=== PATIENT | female | born 1945 | race Caucasian/White ===

== ENCOUNTER 2019-07-07 07:03 | Observation (INO) | payer MEDICARE ==
[~2019-07-07] VITALS: Ht 162.6 cm; Wt 77.3 kg
[2019-07-07] VITALS (7 sets, daily range): BP systolic 131–149; BP diastolic 65–83; Ht 162.6 cm; Wt 77.3 kg
[2019-07-07] MEDS ORDERED: ALBUTEROL SULF8.5 GM INH (07:10)
[2019-07-07] MEDS ORDERED: ADVAIR 250/501 DISK INH (07:10)
[2019-07-07] MEDS ORDERED: ULTRAM50 MG PO (07:11)
[2019-07-07] MEDS ORDERED: VITAMIN C WIT1000 MG PO (07:11)
[2019-07-07] MEDS ORDERED: ASPIRIN81 MG PO (07:11)
[2019-07-07] MEDS ORDERED: MULTI-DAY VITAM1 TAB PO (07:12)
--- NOTE | 2019-07-07 07:59 | NUR ---
REPORT TO SACHIN AT 0755. PATIENT GOING TO ROOM 2104.
[2019-07-07 08:03] LABS: BASOPHILS 0.3 % (0-2); EOSINOPHILS 1.5 % (0-7); HEMATOCRIT 45.8 % (36.0-48.0); HEMOGLOBIN 15.1 g/dL (12-16); IMMATURE GRANULOCYTES 0.2 % (0-5); MCH 31.1 pg (26.0-34.0); MCV 94.4 fL (80.0-100.0); MEAN PLATELET VOLUME 8.7 fL (7.4-10.4); MONOCYTES 6.6 % (2-11); NEUTROPHILS 65.4 % (40-80); PLATELET COUNT 372 10x3/uL (130-400); RBC 4.85 10x6/uL (4.00-5.40); RDW 14.1 % (11.5-14.5); WBC 10.8 10x3/uL (4.8-10.8)
--- NOTE | 2019-07-07 08:06 | NUR ---
PATIENT BLUE FOLDER NOT READY JUST YET. REGISTRATION STILL IN PATIENT'S ROOM. WILL TRANSPORT WHEN ABLE.
[2019-07-07 08:15] LABS: CALC OSMOLALITY 286 mosm/kg (275-300); CALCIUM 8.7 mg/dL (8.5-10.1); CHLORIDE - SERUM 108 mmol/L (98-107); CREATININE - SERUM 0.9 mg/dL (0.6-1.3); GLUCOSE 113 mg/dL (74-106); POTASSIUM - SERUM 4.1 mmol/L (3.5-5.1); SODIUM 143 mmol/L (136-145); UREA NITROGEN 16 mg/dL (7-18); eGFR NON AFRICAN AMERICAN 65 mL/min (90-120)
[2019-07-07 08:17] LABS: INR 1.02 (0.85-1.17); PROTIME 12.9 SECONDS (11.6-15.0)
[2019-07-07 08:18] LABS: APTT 39.7 SECONDS (22.8-39.4)
--- NOTE | 2019-07-07 08:23 | NUR ---
RECIEVED PT FROM ER VIA W/C TO ROOM 2103. PT ALERT AND ORIENTED. RESP EVEN AND UNLABORED. PT REPORTS HAVING HAD PRESSURE IN HER CHEST SINCE LAST EVENING. PT DENIES CHEST PAIN AT THIS TIME, BUT DOES VOICE A "SORE SPOT" AND POINTS TO MIDDLE LEFT OF CHEST. IV TO RIGHT FOREARM, SALINE LOCKED. SITE WITHOUT REDNESS OR EDEMA. ORIENTED PT TO ROOM, CALL LIGHT AND BED CONTROLS. PT DENIES FURTHER QUESTIONS AT THIS TIME. CL WITHIN REACH. ENCOURAGED TO CALL WITH NEEDS. CONTINUE POC
--- NOTE | 2019-07-07 08:26 | NUR ---
0815 PATIENT TRANSPORTED TO ROOM 2104. NO DISTRESS. DEIVERED TO CARLITO STEPHENSON. ANA IN ROOM PERFORMING VITALS. PATIENT TOLERATED WELL.
[2019-07-07 08:32] LABS: ALBUMIN 3.3 g/dL (3.4-5.0); ALKALINE PHOSPHATASE 64 U/L (46-116); ALT (SGPT) 27 U/L (10-68); BILIRUBIN - TOTAL 0.34 mg/dL (0.2-1.3); CKMB 0.4 U/L (0.0-3.6); CREATINE KINASE 66 UL (21-215); MAGNESIUM - SERUM 2.2 mg/dL (1.8-2.4); PROTEIN - SERUM 7.2 g/dL (6.4-8.2)
[2019-07-07 08:38] LABS: TROPONIN-I < 0.017 ng/mL (0.000-0.060)
[2019-07-07 13:55] LABS: CKMB 0.4 U/L (0.0-3.6); CREATINE KINASE 76 UL (21-215)
[2019-07-07 13:57] LABS: TROPONIN-I < 0.017 ng/mL (0.000-0.060)
--- NOTE | 2019-07-07 19:00 | NUR ---
PT SITTING UP IN BED WATCHING TV. NO DISTRESS NOTED. SHE DENIES PAIN OR NEEDS. BED IS LOW AND CALL LIGHT IS WITHIN REACH.
[2019-07-07 19:57] LABS: CKMB 0.5 U/L (0.0-3.6); CREATINE KINASE 80 UL (21-215); TROPONIN-I < 0.017 ng/mL (0.000-0.060)
[2019-07-08 03:29] LABS: BASOPHILS 0.2 % (0-2); EOSINOPHILS 2.1 % (0-7); HEMATOCRIT 42.4 % (36.0-48.0); HEMOGLOBIN 13.7 g/dL (12-16); IMMATURE GRANULOCYTES 0.1 % (0-5); LYMPHOCYTES 36.1 % (15-50); MCH 31.3 pg (26.0-34.0); MCHC 32.3 g/dL (31.0-37.0); MEAN PLATELET VOLUME 8.6 fL (7.4-10.4); MONOCYTES 7.4 % (2-11); NEUTROPHILS 54.1 % (40-80); PLATELET COUNT 328 10x3/uL (130-400); RBC 4.38 10x6/uL (4.00-5.40); RDW 14.3 % (11.5-14.5)
[2019-07-08 03:30] LABS: MCV 96.8 fL (80.0-100.0)
[2019-07-08 03:50] LABS: ALBUMIN 2.8 g/dL (3.4-5.0); ALKALINE PHOSPHATASE 54 U/L (46-116); ALT (SGPT) 22 U/L (10-68); BILIRUBIN - TOTAL 0.32 mg/dL (0.2-1.3); CALC OSMOLALITY 285 mosm/kg (275-300); CHLORIDE - SERUM 110 mmol/L (98-107); CHOL - HDL RATIO 3.8 ratio (2.3-4.1); CHOLESTEROL, TOTAL 150 mg/dL (0-200); CREATININE - SERUM 0.7 mg/dL (0.6-1.3); GLUCOSE 94 mg/dL (74-106); HDL CHOLESTEROL 40 mg/dL (32-96); LDL CHOLESTEROL 89 mg/dL (0-100); LDL-HDL RATIO 2.2 ratio (1.5-3.5); POTASSIUM - SERUM 4.4 mmol/L (3.5-5.1); PROTEIN - SERUM 6.2 g/dL (6.4-8.2); SODIUM 143 mmol/L (136-145); TRIGLYCERIDE 107 mg/dL (30-200); UREA NITROGEN 16 mg/dL (7-18); eGFR NON AFRICAN AMERICAN 87 mL/min (90-120)
[2019-07-08 04:00] VITALS: BP 140/80
--- NOTE | 2019-07-08 07:33 | NUR ---
REPORT RECIEVED. PT SITTING UP IN BED. COFFEE GIVEN TO PT. RR EVEN AND UNLABORED. NO DISTRESS NOTED. SHE HAS A R FA PIV THAT IS SL. SHE STATES SHE IS READY TO BE DC. BED LOCKED AND IN LOWEST POSITION, CALL LIGHT WITHIN REACH. WILL CTM
[2019-07-08 08:16] VITALS: BP 117/63
[2019-07-08] MEDS ORDERED: LIPITOR10 MG PO (10:42)
[2019-07-08] MEDS ORDERED: TOPROL XL25 MG PO (10:43)
--- NOTE | 2019-07-08 12:42 | NUR ---
DC PAPERWORK GONE OVER AND SIGNED WITH PT. ALL QUESTIONS ANSWERED. PIV REMOVED, CATH TIP FULLY INTACT. PT AWATING FAMILY TO GET HERE FROM [place] TO TAKE HER HOME.
--- NOTE | 2019-07-08 12:59 | NUR ---
PTS FAMILY HERE TO TAKE HER HOME. TELEMETRY REMOVED AND RETURNED TO JEEP MECHANIC. VALUBLES ALL TAKEN WITH PT
--- NOTE | 2019-07-12 14:07 | EC ---
PATIENT:TARA MOON DATE OF SERVICE: 07/07/19 SEX: F MEDICAL RECORD: [id number] DATE OF : 49 LOCATION:D.M2 D.210 AGE OF PATIENT: 73 ADMISSION DATE: 07/07/19 REFERRING PHYSICIAN: INTERPRETING PHYSICIAN: DOROTHEA VALENTINO MD ECHOCARDIOGRAM REPORT ECHO CHARGES 4 ECHO COMPLETE Date: 07/07/19 CLINICAL DIAGNOSIS: PALPITATIONS ECHOCARDIOGRAPHIC MEASUREMENTS (adult normal given) AC root (d.<3.7cm) 3.6 cm LV Septum d (<1.2 cm> 1.3 cm Valve Excursion 1.6 cm LV Septum (systole) 1.7 cm Left Atria (s.<4.0cm> 3.0 cm LVPW d(<1.2cm) 1.3 cm RV (d.<2.3cm) 3.2 cm LVPW (sytole) 1.6 cm LV diastole(<5.6CM) 4.1 cm MV E-F(>70mm/sec) cm LV systole 3.1 cm LVOT Diameter 1.9 cm MV exc.(>10mm) cm Est.ejection fraction (50-75%) % DOPPLER: LVIT cm/sec A 95.0 cm/sec E 78.0 cm/sec LA cm/sec RVSP 16 mmHg LVOT 115 cm/sec AOP1/2T m/s Asc. Ao 132 cm/sec RVOT 79 cm/sec RA cm/sec PA 92 cm/sec AV Gradient Peak 5.4 mmHg AV Mean 3.2 mmHg AV Area 1.9 cm MV Gradient Peak 4.59 mmHg MV Mean 2.21 mmHg MV Area cm COMMENTS: Ad Compositor: German DOWNING Records Management Analyst: Jayda Valentino TAPE# PACS Pericardial Effusion N DATE OF SERVICE: 07/07/2019 FINDINGS: 1. Left ventricular chamber size is within normal limits. Left ventricular systolic function is normal. Overall ejection fraction estimated at 55% to 60%. 2. Left atrium, right atrium, and right ventricle chamber sizes are within normal limits. 3. Valvular structures have normal structure and motion. 4. Doppler interrogation reveals no significant valvular insufficiency or stenosis and pulmonary systolic pressure is normal estimated at 16 mmHg. ECHOCARDIOGRAM REPORT [id number] TARA MOON 5. No evidence of pericardial effusion or left ventricular thrombus. TRANSINT:[id number] Voice Confirmation ID: [id number] DOCUMENT ID: [id number] DOROTHEA VALENTINO MD at 1407 CC: [id number] DICTATION DATE: 07/07/19 151 SUPERVISOR TYPE DISK QUALITY CONTROL: 07/07/19 1708 DIS IN 07/08/19 [facility] [address] [id number]
== END 2019-07-08 13:00 | disposition home or self-care (01) ==
LOC: D.ER 07:03 → D.M2 07:29 → OBSVTIME 08:08 → D.M2 07-08 13:00
PROVIDERS: Family Medicine; ADMIT Family Medicine; ATTEND Family Medicine
DX: I24.9 Acute ischemic heart disease, unspecified (principal); F17.200 Nicotine dependence, unspecified, uncomplicated; R73.9 Hyperglycemia, unspecified; R07.9 Chest pain, unspecified; Z82.49 Family history of ischemic heart disease and other diseases of the circulatory system

== ENCOUNTER 2019-09-26 07:53 | Outpatient (CLI) | payer MEDICARE ==
[~2019-09-26] VITALS: Ht 162.6 cm; Wt 80.9 kg
--- NOTE | ~2019-09-26 | HEMODYNAMI ---
PATIENT:TARA MOON MEDICAL RECORD: [id number] : 49 LOCATION:[facility] ADMISSION DATE: 09/26/19 Generatedon:09/27/20199:29 Patient name: TARA MOON Patient #: [id number] SSN: : 1945 Date of study: 09/26/2019 Page: Of Hemodynamic Procedure Report Patient Data Patient Demographics Procedure consent was obtained First Name: TARA Gender: Female Last Name: RED : 1945 [facility] Initial: [place] Age: 73 year(s) Patient #: [id number] Race: Unknown Additional ID: [id number] Contact details Address: [address] [place] [address] State: [place] City: [place] Zip code: [address] Past Medical History Performed procedures and imaging results Date Procedure Procedure Results Comments Stress testing Positive->Intermediate with SPECT MPI risk Allergies Allergen Reaction Date Comments Reported Other allergy 09/26/2019 PHENOBARBITAL, OXYCODONE, ANTIHISTAMINES, CLARITIN D Admission Admission Data Admission Date: 09/26/2019 Admission Time: 7:53 Arrival Date: 09/26/2019 Arrival Time: 0:00 Height (in.): 63.78 BSA: 1.86 (m2) Height (cm.): 162 BMI: 30.86 (kg/m2) Weight (lbs.): 178.58 Weight (kg.): 81 Lab Results Lab Result Date: 09/26/2019 Lab Result Time: 0:00 Biochemistry Name Units Result Min Max BUN mg/dl 10 --(-*--)-- 7 18 Creatinine mg/dl 0.8 --(-*--)-- 0.6 1.3 eGFR ml/min 75 *-(----)-- 90 120 NONAFRICAN CBC Name Units Result Min Max Hematocrit % 46.9 --(-*--)-- 42 54 Hemoglobin g/dl 15.5 --(-*--)-- 13.5 17.5 Procedure Procedure Types Cath Procedure Diagnostic Procedure [facility] w/Coronaries FFR/IVUS FFR Initial FFR Additional Sedation Charges Moderate Sedation up to 15 minutes PCI Procedure Coronary Stent Coronary Stent Initial Hemochron ACT Test Procedure Description Procedure Date Procedure Date: 09/26/2019 Procedure Start Time: 9:55 Procedure End Time: 10:26 Procedure Staff Name Function George Valentino MD Performing Physician Elizabeth Birch RT Scrub Shamar Sellers RN Nurse Therese Buenrostro RT Monitor Procedure Data Cath Procedure Fluoroscopy Diagnostic fluoroscopy Total fluoroscopy Time: 8.7 time: 8.7 min min Diagnostic fluoroscopy Total fluoroscopy dose: 964 dose: 964 mGy mGy Contrast Material Contrast Material Type Amount (ml) Isovue 300 141 Entry Location Entry Primary Successful Side Size Upsize Upsize Entry Closure Phan ccessful Closure Location (Fr) 1 (Fr) 2 (Fr) Remarks Device Remarks Radial Right 5 Fr Mechanical artery Compression Estimated blood loss: 10 ml Diagnostic catheters Device Type Used For End Catheter Placement DIAGNOSTIC [place] 110cm 5 Procedure Fr catheter ([id number]) Procedure Complications No complications Procedure Medications Medication Administration Route Dosage 0.9% NaCl I.V. 100 ml/hr Oxygen etCO2 Nasal cannula 2 l/min Heparin Flush Bag added to field 2 bags (1000units/500ml NS) Lidocaine 2% added to field 20 Radial Cocktail added to field 1 syringe (Verapamil 2mg/Nitro 400mcg/Heparin 1500units) Versed I.V. 2 mg Fentanyl I.V. 100 mcg Radial Cocktail I.A. 1 syringe (Verapamil 2mg/Nitro 400mcg/Heparin 1500units) Heparin Bolus I.V. 4000 units Integrilin (Bolus I.V. 7.3 ml 2mg/ml) Integrilin (Bolus wasted 2.7 ml 2mg/ml) Versed I.V. 2 mg Plavix P.O. 600 mg Hemodynamics Rest BSA: 1.86 (m2) HGB: 15.5 (g/dl) O2 Consumption: Estimated: 252.96 (ml/min) O2 Co nsumption indexed: Estimated:136 (ml/min/m) Pre Cath Intra NCS Post Cath Vital Signs Time Heart Resp SPO2 etCO2 NIBP (mmHg) Rhythm Pain Sedation Rate (ipm) (%) (mmHg) Status Level (bpm) 9:38:33 62 17 94 17.5 131/68(108) NSR 0 (11) 10(A) , No pain 9:42:51 62 16 92 22.1 106/61(90) NSR 0 (11) 10(A) , No pain 9:47:01 59 11 92 26.7 106/59(83) NSR 0 (11) 10(A) , No pain 9:51:11 57 15 92 19.8 105/56(83) NSR 0 (11) 10(A) , No pain 9:55:21 61 15 92 27.5 97/56(81) NSR 0 (11) 10(A) , No pain 9:59:28 67 15 92 25.2 80/50(63) NSR 0 (11) 9(A) , No pain 10:03:34 65 14 93 25.2 85/38(58) NSR 0 (11) 9(A) , No pain 10:07:40 68 14 93 25.2 84/47(59) NSR 0 (11) 9(A) , No pain 10:12:27 65 15 93 22.9 111/59(82) NSR 0 (11) 9(A) , No pain 10:16:39 69 16 92 20.6 106/57(81) NSR 0 (11) 10(A) , No pain 10:20:46 70 17 93 20.6 106/62(86) NSR 0 (11) 10(A) , No pain 10:25:41 69 18 96 20.6 128/66(113) NSR 0 (11) 10(A) , No pain Medications Time Medication Route Dose Verified Delivered Reason Not es Effectiveness by by 9:36:31 0.9% NaCl I.V. 100 Shamar Shamar Per physician ml/hr Verito Sellers RN RN 9:36:40 Oxygen etCO2 2 l/min Shamar Shamar for low 02 sats Nasal Jenniferigan Verito cannula RN RN 9:36:51 Heparin Flush added 2 bags Shamar Shaamr used for Bag to Lorigan Jenniferigan procedure (1000units/500ml field ESTEBAN RN NS) 9:37:02 Lidocaine 2% added 20ml Shamar Shamar for local to vial Lorigan Lorigan anesthetic field ESTEBAN RN 9:37:14 Radial Cocktail added 1 Shamar Shamar used for (Verapamil to syringe Lorigan Lorigan procedure 2mg/Nitro field RN RN 400mcg/Hepari 9:58:38 Versed I.V. 2 mg Shamar Shamar for sedation Verito Sellers RN RN 9:58:48 Fentanyl I.V. 100 mcg Shamar Shamar for sedation Verito Sellers RN RN 9:59:06 Radial Cocktail I.A. 1 Shamar George for (Verapamil syringe Verito Valentino MD vasodilation 2mg/Nitro RN 400mcg/Hepari 10:04:58 Heparin Bolus I.V. 4000 Shamar Shamar for units Verito Sellers anticoagulation RN RN 10:05:14 Integrilin I.V. 7.3 ml Shamar Shamar for (Bolus 2mg/ml) Verito Sellers antiplatelet RN RN therapy 10:05:25 Integrilin wasted 2.7 ml Shamar Shamar to sharp's (Bolus 2mg/ml) Verito Sellers RN RN 10:13:17 Versed I.V. 2 mg Shamar Shamar for sedation Verito Sellers RN, RN 10:23:02 Plavix P.O. 600 mg Shamar Shamar for Verito Sellers antiplatelet RN RN therapy Procedure Log Time Note 9:15:07 Informed consent obtained and on chart 9:19:49 Procedure Status Elective Heart Cath (OP). 9:19:51 Shamar Sellers RN sent for patient. Start room use. 9:19:52 Time tracking: Regular hours (M-F 7:00 - 5:00) 9:19:55 Plan of Care:Hemodynamics will remain stable., Cardiac rhythm will remain stable., Comfort level will be maintained., Respiratory function will remain adequate., Patient/ family verbilizes understanding of procedure., Procedure tolerated without complication., Recovers from procedure without complications.. 9:20:41 H&P Date Dictated: 09/12/2019 Within 30 days and on chart., H&P Addendum completed by physician on day of procedure. (MUST COMPLETE FOR ALL OUTPATIENTS). 9:25:08 Patient received from Pre/Post Procedure Room to CCL 1 Alert and oriented. Tansferred to table in Supine position. 9:25:09 Correct patient and procedure confirmed by team. 9:25:09 Warm blankets applied, and juan antonio hugger turned on for patient comfort. 9:25:10 ECG and BP/O2 sat monitors applied to patient. 9:36:31 0.9% NaCl 100 ml/hr I.V. was administered by Shamar Sellers RN; Per physician; Verbal order read back and verified. 9:36:40 Oxygen 2 l/min etCO2 Nasal cannula was administered by Shamar Sellers RN; for low 02 sats; Verbal order read back and verified. 9:36:51 Heparin Flush Bag (1000units/500ml NS) 2 bags added to field was administered by Shamar Sellers RN; used for procedure; Verbal order read back and verified. 9:37:02 Lidocaine 2% 20ml vial added to field was administered by Shamar Sellers RN; for local anesthetic; Verbal order read back and verified. 9:37:14 Radial Cocktail (Verapamil 2mg/Nitro 400mcg/Heparin 1500units) 1 syringe added to field was administered by Shamar Sellers RN; used for procedure; Verbal order read back and verified. 9:37:22 Vital chart was started 9:39:15 Rhythm: sinus rhythm 9:39:17 Pre-procedure instructions explained to patient. 9:39:17 Full Disclosure recording started 9:39:18 Pre-op teaching completed and patient verbalized understanding. 9:39:19 Family in patients room. 9:39:20 Patient NPO since Midnight. 9:40:09 Patient allergic to Other allergyPHENOBARBITAL, OXYCODONE, ANTIHISTAMINES, CLARITIN D 9:40:11 Is patient on blood thinner?No 9:40:13 Patient diabetic? No. 9:40:20 Snore? Yes 9:40:20 Previous problem with sedation/anesthesia? No ? 9:40:21 Sleep apnea? No 9:40:22 Deviated septum? No 9:40:23 Opens mouth fully? Yes 9:40:29 Sticks out tongue? Yes 9:40:32 Airway obstruction? Yes ASTHMA 9:40:35 Dentures? No ? 9:40:39 Pre procedure: right dorsailis pedis pulse 1+ Palpable, but thready & weak; easily obliterated 9:40:40 Modified Guero's test Ulnar < 7 seconds 9:40:42 Patient pain scale 0/10 ?. 9:40:48 IV patent on arrival in right antecubital with 0.9% NaCl at [facility]. 9:42:26 Lab Result : Hemoglobin 15.5 g/dl 9:42:26 Lab Result : Hematocrit 46.9 % 9:42:26 Lab Result : eGFR NONAFRICAN 75 ml/min 9:42: Lab Result : BUN 10 mg/dl 9:42: Lab Result : Creatinine 0.8 mg/dl 9:43:23 Lab results completed and on chart. 9:43:38 Stress Test: yes; abnormal LATERAL 9:43:44 Right Radial & Right Groin area was prepped with chlora-prep and draped in sterile fashion 9:43:45 Alarms reviewed by R. N. 9:43:46 Sharps counted by scrub and verified by R.N. 9:44:15 Patient Weight : 178.58 lbs 9:44:19 Patient Height : 63.78 inches 9:47:40 Use device set Radial Dx or PCI 9:47:41 ACIST Syringe (47812) opened to sterile field. 9:47:43 ACIST Hand Control (72116) opened to sterile field. 9:47:43 Bag Decanter (2002S) opened to sterile field. 9:47:44 Tegaderm 4 x 4 (1626W) opened to sterile field. 9:47:44 ACIST Manifold (30636) opened to sterile field. 9:48:04 Medline Cath Pack ([id number]) opened to sterile field. 9:48:05 MBrace Wrist Support ([id number]) opened to sterile field. 9:48:06 SHEATH 6FR RAIN (4523812) opened to sterile field. 9:48:06 EMERALD Guide Wire (335-658) opened to sterile field. 9:49:00 Arrival Date: 09/26/2019 12:00:00 AM 9:52:28 --------ALL STOP TIME OUT------ 9:52:29 Final Timeout: patient, procedure, and site verified with staff and physician. All members of the team are in agreement. 9:52:30 Right Radial & Right Groin site verified by team. 9:52:33 Fire Safety Assessment: A--An alcohol-based skin anteseptic being used preoperatively., C--Open oxygen or nitrous oxide is being used., D--An ESU, laser, or fiber-optic light is being used. 9:52:35 Physical assessment completed. ASA score P 2 - A patient with mild systemic disease as per George Valentino MD. 9:52:38 2) 60-89 Mildly reduced kidney function, and other findings (as for stage 1) point to kidney disease. 9:52:41 Maximum allowable contrast dose (3.7 X eGFR X 0.75)208 ml. 9:52:44 Sedation plan: IV Moderate Sedation Medication:Versed, Fentanyl 9:55:26 Procedure started. 9:55:29 Zero performed for pressure channel P1 9:55:41 Local anesthetic to right radial artery with Lidocaine 2% by George Valentino MD.INITIAL ACCESS ONLY 9:56:25 Zero performed for pressure channel P1 9:57:50 A 5 Fr sheath was inserted into the Right Radial artery 9:58:37 A DIAGNOSTIC [place] 110cm 5 Fr catheter ([id number]) was advanced over the wire and used for Procedure. 9:58:38 Versed 2 mg I.V. was administered by Shamar Sellers RN; for sedation; Verbal order read back and verified. 9:58:39 LV gram done using NUNEZ 9:58:41 Injector settings: Ml/sec: 5, Volume: 15, 9:58:48 EF : 60 % 9:58:48 Fentanyl 100 mcg I.V. was administered by Shamar Sellers RN; for sedation; Verbal order read back and verified. 9:59:06 Radial Cocktail (Verapamil 2mg/Nitro 400mcg/Heparin 1500units) 1 syringe I.A. was administered by George Valentino MD; for vasodilation; Verbal order read back and verified. 9:59:20 RCA angiography performed. 10:01:00 LCA angiography performed. 10:01:07 Catheter exchanged over wire. 10:01:55 INFLATOR [place] BasixCompak (GL7835) opened to sterile field. 10:01:56 [place] Verrata Plus pressure wire (24137E) opened to sterile field. 10:03:09 GUIDE 6FR XBLAD 3.5 catheter ([id number]) opened to sterile field. 10:04:09 6 Fr XBALD 3.5 guide catheter was inserted over the wire 10:04:42 FFR/IFR wire advanced. 10:04:58 Heparin Bolus 4000 units I.V. was administered by Shamar Lorigan RN; for anticoagulation; Verbal order read back and verified. 10:05:14 Integrilin (Bolus 2mg/ml) 7.3 ml I.V. was administered by Shamar Sellers RN; for antiplatelet therapy; Verbal order read back and verified. 10:05:25 Integrilin (Bolus 2mg/ml) 2.7 ml wasted was administered by Shamar Sellers RN; to sharp's; Verbal order read back and verified. 10:06:49 Wire removed. 10:06:54 Guide Catheter removed. unable to cannulate vessel. 10:07:39 GUIDE 6FR JL 3.5 guide catheter ([id number]) opened to sterile field. 10:10:14 FFR/IFR wire advanced. 10:10:16 Wire advanced across lesion. 10:10:40 mCirc lesion measured at .94 with IFR 10:11:13 Guide catheter removed. 10:11:13 Wire removed. 10:11:31 GUIDE 6FR AR 1.0 SH catheter ([id number]) opened to sterile field. 10:12:34 6 Fr AR 1 SH guide catheter was inserted over the wire 10:12:39 FFR/IFR wire advanced. 10:12:57 Wire advanced across lesion. 10:13:17 Versed 2 mg I.V. was administered by Shamar Sellers RN; for sedation; Verbal order read back and verified. 10:13:18 mCirc lesion measured at .87 with IFR 10:13:19 LATE ENTRY 1.22.2020 @ 1059. NOTE ABOVE INCORRECT. LESION MEASURED IS THE mRCA AT .87 WITH IFR. THERESE BUENROSTRO 10:13:36 Pre PCI Site: [place] mRCA has 75% stenosis. 10:15:58 The INTEGRITY RX 3.0 x 12 stent ([id number]) was advanced then removed because of failure to cross lesion 10:17:09 Inflate balloon Inflation number: 1 A EUPHORA 2.5 x 12 Balloon ([id number]) was prepped and advanced across the Prox RCA , then inflated to 15 PAWAN for 0:00 (min:sec) . 10:17:12 Balloon removed over the wire. 10:18:22 Place stent Inflation Number: 2 A INTEGRITY RX 3.0 x 12 stent ([id number]) was prepped and advanced across the Prox RCA . The stent was deployed at 13 PAWAN for 0:00 (min:sec) . 10:18:39 Stent catheter was removed intact over wire. 10:20:08 Place stent Inflation Number: 3 A INTEGRITY RX 3.0 x 09 stent ([id number]) was prepped and advanced across the Prox RCA . The stent was deployed at 13 PAWAN for 0:00 (min:sec) . 10:20:15 Stent catheter was removed intact over wire. 10:20:17 Wire removed. 10:20:18 Guide catheter removed. 10:20:56 ZEPHYR REGULAR TR BAND ([id number]) opened to sterile field. 10:21:01 Procedure ended.(Physican Out) 10:21:36 Sheath removed intact; hemostasis achieved with Mechanical Compression to the Right Radial artery. 10:23:02 Plavix 600 mg P.O. was administered by Shamar Sellers RN; for antiplatelet therapy; Verbal order read back and verified. 10:23:56 Fluoroscopy time 08.70 minutes. 10:24:00 Fluoroscopy dose: 964 mGy 10:24:00 Flurop Dose total: 964 10:24:06 Dose Area Product 17046 mGy/cm. 10:24:11 Contrast amount:Isovue 300 141ml. 10:24:13 Maximum allowable dose exceeded? No. 10:24:15 Sharps counted by scrub and verified by R.N. 10:24:17 [place] band inflated with 9cc of air. 10:24:22 Post-procedure physical assessment completed. ASA score P 2 - A patient with mild systemic disease as per George Valentino MD. 10:24:24 Post procedure rhythm: sinus rhythm 10::27 Estimated blood loss: 10 ml 10:24:28 Patient needs reinforcement of post procedure teaching. 10:24:28 Post procedure instruction explained to patient.Patient verbalizes understanding. 10:25:05 Procedure type changed to Cath procedure, Diagnostic procedure, LHC, LHC w/Coronaries, FFR/IVUS, FFR Initial, FFR Additional, Sedation Charges, Moderate Sedation up to 15 minutes, PCI procedure, Coronary Stent, Coronary Stent Initial, Hemochron ACT Test 10:26:23 Procedure and supply charges have been captured, reviewed, submitted and are correct. 10:26:27 Procedure Complication : No complications 10::33 ACT drawn and resulted at 332 seconds. (normal therapeutic range 180-240 seconds). 10:26:37 [facility] Findings: MVD- PCI performed (see procedure note) 10:26:39 Operative report dictated upon procedure completion. 10:26:40 See physician's report for complete and final results. 10:26:42 Report given to Pre/Post Procedure Room. 10:26:45 Patient transfered to Pre/Post Procedure Room with Bed. 10:26:47 Full Disclosure recording stopped 10:26:47 Procedure ended. 10:26:54 ACC-PCI Only Patient was given prescriptions, or instructed by George Valentino MD to start/continue the following medications upon discharge: Plavix 10:26:56 Vital chart was stopped 10:26:59 End room use (Document Last) Intervention Summary Intervention Notes Time ActionType Lesion and Equipment Action# Pressure Duration Attributes Used 10:15:58 Discard INTEGRITY RX Stent 3.0 x 12 stent ([id number]) 10:17:09 Inflate Prox RCA EUPHORA 2.5 1 15 00:00 balloon x 12 Balloon ([id number]) 10:18:22 Place stent Prox RCA INTEGRITY RX 2 13 00:00 3.0 x 12 stent ([id number]) 10:20:08 Place stent Prox RCA INTEGRITY RX 3 13 00:00 3.0 x 09 stent ([id number]) Device Usage Item Name Manufacture Quantity Catalog Hospital Part Current Min imal Lot# / Number Charge Number Stock Stock Serial# Code ACIST Acist 1 11705 331672 735110 [id number] 20 Syringe Medical (05396) Systems Inc Bag Decanter Microtek 1 2001S 616939 46745 532571 5 (2001S) Medical Inc. ACIST Hand Acist 1 57939 626803 928534 844716 5 Control Medical (45996) Systems Inc ACIST Acist 1 26168 536885 634047 575341 5 Manifold Medical (44017) Systems Inc Tegaderm 4 x 3M 1 1626W 996534 387498 958170 5 4 (1626W) Medline Cath Medline 1 [id number] 783616 31562 888104 5 Pack ([id number]) MBrace Wrist Advanced 1 140-0250-00 949536 45585 191883 5 Support Vascular (681022573) Dynamics EMERALD Cardinal 1 502-455 375375 150910 409518 5 Guide Wire [facility] (093-502) SHEATH 6FR Cardinal 1 4389901 779717 3663085 020820 5 [facility] (2265939) DIAGNOSTIC Terumo 1 40-3773 152811 874193 259381 5 [place] 110cm 5 Fr catheter (895600) INFLATOR [facility] 1 BX3058 142911 969949 899720 15 [facility] BasixCompak (IH6549) Glen[place] Glenwood 1 47870P 487296 883655700 718129 5 Verrata Plus pressure wire (89957P) GUIDE 6FR Cardinal 1 [id number] 670793 058212 255864 10 XBLAD 3.5 Health catheter (99345349) GUIDE 6FR JL Medtronic 1 [id number] 595011 49159 687034 1 3.5 guide catheter (IB6MU33) GUIDE 6FR AR Medtronic 1 [id number] 705511 28446 253221 1 1.0 SH catheter ([id number]) INTEGRITY RX Medtronic 1 [id number] 627389 916979 176309 5 [id number] 3.0 x 12 stent ([id number]) EUPHORA 2.5 Medtronic 1 [id number] 494807 247691 665837 5 [id number] x 12 Balloon ([id number]) INTEGRITY RX Medtronic 1 [id number] 325566 157008 108644 5 [id number] 3.0 x 09 stent ([id number]) ZEPHYR Cardinal 1 424370 573446 6764015 784407 5 REGULAR TR Health BAND (690859) Signature Audit [place] Stage Time Signature Unsigned Intra-Procedure 09/26/2019 Therese Buenrostro 10:29:37 AM RT(R) Intra-Procedure 09/26/2019 Shamar 10:29:59 AM Verito ESTEBAN Intra-Procedure 09/26/2019 George Valentino MD 10:30:14 AM 09/27/2019 9:25:17 AM Intra-Procedure 09/27/2019 George Valentino 9:29:14 AM Signatures Performing Physician : Signature : George Valentino MD Date : Time : Nurse : Shamar Lorigan Signature : RN Date : Time : Monitor : Therese Buenrostro Signature : RT Date : Time : [address] [place] [address]
--- NOTE | ~2019-09-26 | OP ---
PATIENT NAME: TARA MOON MEDICAL RECORD: [id number] :49 LOCATION:D.CAT ADMISSION DATE: SURGEON: DOROTHEA NAVARRETE MD DATE OF OPERATION: 09/26/2019 PROCEDURES: 1. PTCA stent RCA. 2. IFR left circumflex. 3. IFR RCA. 4. Left heart catheterization. 5. Selective coronary angiography. 6. Left ventriculogram. INDICATION: Angina and coronary artery disease. PROCEDURE IN DETAIL: After informed consent was obtained and after detailed explanation of risks, benefits as well as alternative therapies, the patient elected to proceed with angiogram and angioplasty. The right radial area was prepped and draped in normal sterile fashion. Right radial artery was cannulated via modified Seldinger technique with placement of 6-British sheath. All catheters exchanged through this sheath. FINDINGS: Left ventriculogram was performed in standard 30-degree NUNEZ view, reveals good cardiac wall motion throughout all segments. Overall ejection fraction estimated at 60%. SELECTIVE CORONARY ANGIOGRAPHY: 1. Left main is with no significant angiographic disease. 2. Left anterior descending has mild irregularities, but no flow-limiting stenosis. 3. The left circumflex has [id number] irregularities, but no flow-limiting stenosis. IFR is normal. 4. The right coronary has a hazy 80% stenosis in the proximal mid vessel. IFR was abnormal. PTCA STENT OF THE RCA: The stent used was a 3.0 x 12 and 3.0 x 9, both on an Integrity stents. Result was 0% residual stenosis. OVERALL IMPRESSION: Successful percutaneous transluminal coronary angioplasty stent of the right coronary artery going from 80% initial stenosis with an abnormal IFR to 0% residual. TRANSINT:[id number] Voice Confirmation ID: [id number] DOCUMENT ID: [id number] DOROTHEA NAVARRETE MD CC: [id number] DICTATION DATE: 09/26/19 1027 CASE SEALER: 09/26/19 1309 REG [facility] [address] [place] [address]
[~2019-09-26 07:53] MED LIST: ADVAIR 250/501 DISK INH; ALBUTEROL SULF8.5 GM INH; ASPIRIN81 MG PO; LIPITOR10 MG PO; MULTI-DAY VITAM1 TAB PO; TOPROL XL25 MG PO; ULTRAM50 MG PO; VITAMIN C WIT1000 MG PO
[2019-09-26 08:29] VITALS: BP 143/64; Ht 162.6 cm; Wt 80.9 kg
[2019-09-26 09:06] LABS: ALT (SGPT) 20 U/L (10-68); BASOPHILS 0.2 % (0-2); CALC OSMOLALITY 284 mosm/kg (275-300); CALCIUM 8.8 mg/dL (8.5-10.1); CARBON DIOXIDE 33.2 mmol/L (21.0-32.0); CHLORIDE - SERUM 107 mmol/L (98-107); CHOL - HDL RATIO 2.5 ratio (2.3-4.1); CHOLESTEROL, TOTAL 129 mg/dL (0-200); CREATININE - SERUM 0.8 mg/dL (0.6-1.3); GLUCOSE 109 mg/dL (74-106); HDL CHOLESTEROL 52 mg/dL (32-96); HEMATOCRIT 46.9 % (36.0-48.0); HEMOGLOBIN 15.5 g/dL (12-16); IMMATURE GRANULOCYTES 0.3 % (0-5); LDL CHOLESTEROL 59 mg/dL (0-100); LDL-HDL RATIO 1.1 ratio (1.5-3.5); LYMPHOCYTES 25.6 % (15-50); MCH 31.3 pg (26.0-34.0); MCV 94.7 fL (80.0-100.0); MEAN PLATELET VOLUME 8.9 fL (7.4-10.4); MONOCYTES 6.9 % (2-11); PLATELET COUNT 350 10x3/uL (130-400); POTASSIUM - SERUM 4.1 mmol/L (3.5-5.1); RBC 4.95 10x6/uL (4.00-5.40); RDW 13.6 % (11.5-14.5); SODIUM 143 mmol/L (136-145); TRIGLYCERIDE 94 mg/dL (30-200); UREA NITROGEN 10 mg/dL (7-18); WBC 10.2 10x3/uL (4.8-10.8); eGFR NON AFRICAN AMERICAN 75 mL/min (90-120)
[2019-09-26] MEDS ORDERED: BAYER CHEWABLE81 MG PO (10:32)
[2019-09-26] MEDS ORDERED: PLAVIX75 MG PO (10:35)
--- NOTE | 2019-09-26 10:40 | NUR ---
PT ARRIVED BY STRETCHER. PLACED ON MONITORS. ASSESSMENT COMPLETE. CALL LIGHT WITHIN REACH. FAMILY AT BEDSIDE. PT RESTING COMFORTABLY.
--- NOTE | 2019-09-26 10:55 | NUR ---
RIGHT WRIST Z BAND IN PLACE. NO BLEEDING/HEMATOMA NOTED. RIGHT HAND WARM TO TOUCH. CAP REFILL < 3 SECS X 4 EXT. VSS. CALL LIGHT WITHIN REACH.
--- NOTE | 2019-09-26 11:25 | NUR ---
RIGHT RADIAL Z BAND IN PLACE. NO BLEEDING/HEMATOMA NOTED. CALL LIGHT WITHIN REACH. FAMILY AT BEDSIDE. VSS.
--- NOTE | 2019-09-26 11:56 | NUR ---
SMALL AMOUNT OF BLEEDING NOTED TO RIGHT WRIST Z BAND. 2cc OF AIR ADDED TO BAND. BLEEDING STOPPED. NO HEMATOMA NOTED. VSS. FAMILY AT BEDSIDE CALL LIGHT WITHIN REACH.
--- NOTE | 2019-09-26 12:13 | NUR ---
RIGHT WRIST Z BAND IN PLACE. NO NEW BLEEDING NOTED. CAP REFILL < 3 SECS X 4 EXT. DENIES NUMBNESS/PAIN.
--- NOTE | 2019-09-26 12:30 | NUR ---
RIGHT WRIST Z BAND IN PLACE. NO BLEEDING/HEMATOMA NOTED. CALL LIGHT WITHIN REACH. PT SET UP WITH COFFEE PER REQUEST. REFUSED FOOD AT THIS TIME. VSS. DENIES NAUSEA/PAIN.
--- NOTE | 2019-09-26 13:15 | NUR ---
1cc OF AIR REMOVED FROM Z BAND. NO BLEEDING/HEMATOMA NOTED. CALL LIGHT WITHIN REACH. FAMILY AT BEDSIDE.
--- NOTE | 2019-09-26 13:30 | NUR ---
2cc OF AIR REMOVED FROM Z BAND. NO BLEEDING/HEMATOMA NOTED. CALL LIGHT WITHIN REACH. FAMILY AT BEDSIDE. VSS.
--- NOTE | 2019-09-26 13:45 | NUR ---
2cc OF AIR REMOVED FROM Z BAND. TOLERATED WELL. NO BLEEDING/HEMATOMA NOTED. CALL LIGHT WITHIN REACH. FAMILY AT BEDSIDE.
--- NOTE | 2019-09-26 14:00 | NUR ---
3cc OF AIR REMOVED FROM Z BAND. NO BLEEDING/HEMATOMA NOTED. CALL LIGHT WITHIN REACH. FAMILY AT BEDSIDE.
--- NOTE | 2019-09-26 14:25 | NUR ---
Z BAND REMOVED AND DRESSING APPLIED. NO BLEEDING/HEMATOMA NOTED. PIV D/C'D WITH CATH TIP INTACT. TOLERATED WELL. DISCUSSED DISCHARGE INSTRUCTIONS WITH PT AND PT'S FAMILY. THEY VOICED UNDERSTANDING. PT INSTRUCTED TO GET UP AND DRESSED. FAMILY AT BEDSIDE TO ASSIST.
--- NOTE | 2019-09-26 14:45 | NUR ---
PT TAKEN TO RESTROOM BY WHEELCHAIR. VOIDED WITHOUT DIFFICULTY. TAKEN OUT TO VEHICLE BY WHEELCHAIR. NO S/S OF DISTRESS NOTED. ALL BELONGINGS AND PAPERWORK IN HAND. RIGHT WRIST DRESSING C/D/I. NO S/S OF HEMATOMA NOTED.
== END 2019-09-26 14:45 | disposition home or self-care (01) ==
LOC: D.CATH 07:53
PROVIDERS: ATTEND Internal Medicine Interventional Cardiology
DX: I25.119 Atherosclerotic heart disease of native coronary artery with unspecified angina pectoris (principal); R07.9 Chest pain, unspecified; I10 Essential (primary) hypertension; E78.5 Hyperlipidemia, unspecified